=== PATIENT | female | born 1990 | race American Indian/Alaskan Native ===

== ENCOUNTER 2016-09-23 22:07 | Emergency (ER) | payer OTHER ==
[2016-09-23 22:12] VITALS: BP 129/93
[2016-09-24] MEDS ORDERED: ZOFRAN ODT PO ONE (02:04)
[2016-09-24] MEDS ORDERED: NORCO 5/325 PO ONE (02:05)
[2016-09-24] MEDS ORDERED: TORADOL IM ONE (02:05)
--- NOTE | 2016-09-24 02:08 | Emergency Department Report ---
ED Headache HPI - General Chief Complaint: Headache Stated Complaint: MIGRAINE/NAUSEA Time Seen by Provider: 09/24/16 01:49 - History of Present Illness Initial Comments: 25-year-old female presents to emergency room with a chronic headache. Patient states this was diagnosed migraine headaches for years. 7. Topamax but she is out of her Topamax since June of last year. Patient can not afford to see a neurologist for further care. Complains of mild nausea with headache. Timing/Duration: 24 hours, constant Quality: mild, constant Head Injury Location: global Recent Head Trauma: chronic headaches Modifying Factors: improves with: medication Associated Symptoms: nausea/vomiting. denies: sinus infection, stiff neck Allergies/Adverse Reactions: Allergies No Known Allergies Allergy (Unverified 09/23/16 22:32) Home Medications: Ambulatory Orders Diclofenac Sodium 75 mg PO BID #14 tablet. 09/24/16 Ondansetron [Zofran Odt] 4 mg PO Q8HR #12 tab.rapdis 09/24/16 Topiramate [Topamax] 25 mg PO BID #14 tablet 09/24/16 ED Review of Systems ROS: Stated complaint: MIGRAINE/NAUSEA Other details as noted in HPI Comment: All other systems reviewed and negative Constitutional: denies: chills, fever Eyes: denies: eye pain, eye discharge, vision change ENT: denies: ear pain, throat pain Respiratory: denies: cough, shortness of breath, wheezing Cardiovascular: denies: chest pain, palpitations Endocrine: no symptoms reported Gastrointestinal: denies: abdominal pain, nausea, diarrhea Genitourinary: denies: urgency, dysuria, discharge Musculoskeletal: denies: back pain, joint swelling, arthralgia Skin: denies: rash, lesions Neurological: as per HPI, headache. denies: weakness, paresthesias Psychiatric: denies: anxiety, depression Hematological/Lymphatic: denies: easy bleeding, easy bruising ED Past Medical Hx - Past Medical History Previous Medical History?: Yes Hx Headaches / Migraines: Yes - Surgical History Past Surgical History?: No - Social History Smoking Status: Never Smoker Substance Use Type: None - Medications Home Medications: Home Medications Medication Instructions Recorded Confirmed Last Taken Type Diclofenac Sodium 75 mg PO BID #14 tablet. 09/24/16 Unknown Rx Ondansetron [Zofran Odt] 4 mg PO Q8HR #12 tab.rapdis 09/24/16 Unknown Rx Topiramate [Topamax] 25 mg PO BID #14 tablet 09/24/16 Unknown Rx ED Physical Exam - General Limitations: No Limitations General appearance: alert, in no apparent distress - Head Head exam: Present: atraumatic, normocephalic - Eye Eye exam: Present: normal appearance - ENT ENT exam: Present: mucous membranes moist - Neck Neck exam: Present: normal inspection - Respiratory Respiratory exam: Present: normal lung sounds bilaterally. Absent: respiratory distress - Cardiovascular Cardiovascular Exam: Present: regular rate, normal rhythm. Absent: systolic murmur, diastolic murmur, rubs, gallop - GI/Abdominal GI/Abdominal exam: Present: soft, normal bowel sounds - Extremities Exam Extremities exam: Present: normal inspection - Back Exam Back exam: Present: normal inspection - Neurological Exam Neurological exam: Present: alert, altered, oriented X3, CN II-XII intact - Psychiatric Psychiatric exam: Present: normal affect, normal mood - Skin Skin exam: Present: warm, dry, intact, normal color. Absent: rash ED Course Vital Signs 09/23/16 09/23/16 22:10 22:27 Temperature 98.8 F 98.8 F Pulse Rate 84 84 Respiratory 20 20 Rate Blood Pressure 129/93 Blood Pressure 129/93 [Right] O2 Sat by Pulse 97 97 Oximetry - Reevaluation(s) Reevaluation #1: Patient states he feels better after medications in the emergency room. vitals sign stable. 09/24/16 02: Critical care attestation.: If time is entered above; I have spent that time in minutes in the direct care of this critically ill patient, excluding procedure time. ED Disposition Clinical Impression: Chronic headaches Qualifiers: Headache type: unspecified Intractability: not intractable Qualified Code(s): R51 - Headache Disposition: DISCHARGED TO HOME OR SELFCARE Is pt being admited?: No Does the pt Need Aspirin: No Condition: Good Instructions: Migraine Headache (ED) Prescriptions: Diclofenac Sodium 75 mg PO BID #14 tablet. Ondansetron [Zofran Odt] 4 mg PO Q8HR #12 tab.rapdis Topiramate [Topamax] 25 mg PO BID #14 tablet Referrals: [facility] [Provider Group] - 3-5 Days
== END 2016-09-24 02:50 | disposition home or self-care (01) ==
LOC: ED 22:07
DX: G43.909 Migraine, unspecified, not intractable, without status migrainosus (principal)
CPT/HCPCS: 96372; 99282; J1885; Q0162

== ENCOUNTER 2020-11-06 14:15 | Emergency (ER) | payer OTHER ==
--- NOTE | 2020-11-06 14:28 | Emergency Department Report ---
Blank Doc - Documentation Documentation: 30-year-old female that was sent by Dr. Echols for a D&C procedure with heavy v aginal bleeding and nausea vomiting. 1- This initial assessment/diagnostic orders/clinical plan/ treatment(s) is/are subject to change based on pt's health status, clinical progression and re-assessment by fellow clinical providers in the ED. Further treatment and workup at subsequent clinical provers discretion. Patient/guardians urged not to elope from ED as their condition may be serious if not clinically assessed and managed. 2-patient consulted with Dr. Echols and no US needed but labs with IV medications for nausea.
[2020-11-06 15:05] LABS: Basophils # (Auto) 0.1 K/mm3 (0.0-0.1); Basophils % (Auto) 0.6 % (0.0-1.8); Eosinophils % (Auto) 0.2 % (0.0-4.3); Hematocrit 38.8 % (30.3-42.9); Hemoglobin 13.8 gm/dl (10.1-14.3); Lymphocytes # (Auto) 1.2 K/mm3 (1.2-5.4); Lymphocytes % (Auto) 12.9 % (13.4-35.0); Mean Corpuscular HGB Conc 36 % (30-34); Mean Corpuscular Volume 83 fl (79-97); Monocytes # (Auto) 0.9 K/mm3 (0.0-0.8); Monocytes % (Auto) 8.9 % (0.0-7.3); Platelet Count 290 K/mm3 (140-440); Red Blood Count 4.68 M/mm3 (3.65-5.03); Red Cell Distribution Width 12.7 % (13.2-15.2)
[2020-11-06] MEDS ORDERED: propofoL 200 MG/20 ML VIAL IV ONE (15:05)
[2020-11-06] MEDS ORDERED: LIDOCAINE PF 100 MG/5 ML (CARDIAC SYRINGE) IV ONE (15:06)
[2020-11-06] MEDS ORDERED: fentaNYL 100 MCG/2 ML INJ ONE (15:06)
--- NOTE | 2020-11-06 15:13 | History and Physical Report ---
History of Present Illness Date of examination: 11/06/20 History of present illness: This is a 30-year-old -0-0-0 who is at 9 weeks and 3 days by her last menstrual. Patient sent in from the office to have a D&C suction completion. Patient diagnosed with a blighted ovum on ultrasound yesterday. Her recent quant was over 65,000 and patient has not been able to tolerate p.o. in a few days now. Hence the urgency to proceed with suction D&C completion today. Patient is Rh+. Patient with no significant abdominal pain. No vaginal bleeding. Past History Past Medical History: asthma, other (Heart murmur) Past Surgical History: no surgical history Social history: no significant social history - Obstetrical History : 2 Para: 1 Hx # Term Pregnancies: 1 Number of Living Children: 0 Medications and Allergies Allergies Allergy/AdvReac Type Severity Reaction Status Date / Time No Known Allergies Allergy Unverified 09/23/16 22:32 Home Medications Medication Instructions Recorded Confirmed Last Taken Type Diclofenac Sodium 75 mg PO BID #14 tablet. 09/24/16 Unknown Rx Ondansetron [Zofran Odt] 4 mg PO Q8HR #12 tab.rapdis 09/24/16 Unknown Rx Topiramate [Topamax] 25 mg PO BID #14 tablet 09/24/16 Unknown Rx Review of Systems All systems: negative (Except HPI) - Vital Signs Vital signs: Vital Signs Temp Pulse Resp BP Pulse Ox 98.5 F 75 18 131/92 100 11/06/20 14:25 11/06/20 14:25 11/06/20 14:25 11/06/20 14:25 11/06/20 14:25 Temp Pulse Resp BP Pulse Ox 98.5 F 75 18 131/92 100 11/06/20 14:25 11/06/20 14:25 11/06/20 14:25 11/06/20 14:25 11/06/20 14:25 - Physical Exam Abdomen: Positive: soft. Negative: tenderness Genitourinary (Female): Positive: other (Deferred to the operating room) Results Result Diagrams: 11/06/20 14:40 Abnormal lab results 11/06/20 Range/Units 14:40 MCHC 36 H (30-34) % RDW 12.7 L (13.2-15.2) % Lymph % (Auto) 12.9 L (13.4-35.0) % [place] % (Auto) 8.9 H (0.0-7.3) % [place] # (Auto) 0.9 H (0.0-0.8) K/mm3 Seg Neutrophils % 77.4 H (40.0-70.0) % All other labs normal. Assessment and Plan - Patient Problems (1) Blighted ovum Status: Acute Plan to address problem: This along with her significant hyperemesis gravidarum is why we are proceeding with suction D&C completion. Options discussed with the patient and she agrees to proceed with the surgery. Patient fully consented for the surgery. Risks, benefits, and alternatives were all discussed with the patient including risk of bleeding, infection, and potential for injury. Patient understands and accepts these risks. Patient agrees to proceed with surgery. All questions were answered. After the procedure, will give patient some crackers and if she can tolerate that she will be able to go home postop.
[2020-11-06] MEDS ORDERED: LACTATED RINGERS 1,000 ML ONE (15:15)
[2020-11-06 15:16] LABS: Alanine Aminotransferase 7 units/L (7-56); Albumin 4.9 g/dL (3.9-5); BUN/Creatinine Ratio 13; Bilirubin,Direct < 0.2 mg/dL (0-0.2); Blood Urea Nitrogen 8 mg/dL (7-17); Calcium 9.8 mg/dL (8.4-10.2); Hemolysis Index 5
[2020-11-06] MEDS ORDERED: KETOROLAC 30 MG/1 ML INJ ONE (15:30)
[2020-11-06] MEDS ORDERED: dexAMETHasone 20 MG/5 ML VIAL ONE (15:32)
[2020-11-06] MEDS ORDERED: ONDANSETRON 4 MG/2 ML INJ ONE (15:32)
[2020-11-06] MEDS ORDERED: SODIUM CHLORIDE 0.9% IRR 1,000 ML BOTTLE IR ONE (15:45)
--- NOTE | 2020-11-06 15:56 | Anesthesia Consultation ---
Anesthesia Consult and Med Hx Date of service: 11/06/20 - Airway Anesthetic Teeth Evaluation: Chipped ROM Head & Neck: Adequate Mental/Hyoid Distance: Adequate Mallampati Class: Class II Intubation Access Assessment: Good - Pre-Operative Health Status ASA Pre-Surgery Classification: ASA2, Emergency Proposed Anesthetic Plan: General - Pulmonary Hx Asthma: Yes (Stable) - Hematic Hx Anemia: No Hx Sickle Cell Disease: No - Other Systems Hx Obesity: No
--- NOTE | 2020-11-06 15:56 | Anesthesia Day of Surgery ---
Anesthesia Day of Surgery - Day of Surgery Patient Examined: Yes Patient H&P Reviewed: Yes Patient is NPO: Yes
[2020-11-06] MEDS ORDERED: HYDROmorphone 1 MG/1 ML INJ IV PRN ×2 (15:57)
[2020-11-06] MEDS ORDERED: ONDANSETRON 4 MG/2 ML INJ IV PRN (15:57)
--- NOTE | 2020-11-06 16:06 | Post Operative Note ---
Date of procedure: 11/06/20 Pre-op diagnosis: blighted ovum Post-op diagnosis: same Findings: Positive products of conception. 8 to 9-week uterus on bimanual exam. No active bleeding was noted at the start of the case. Procedure: Indication: 30-year-old with a blighted ovum at 9 weeks and 3 days. Patient as result is here for suction D&C completion Findings: Positive products of conception were suctioned. Procedure: Patient taken to the operating room and prepped and draped in usual fashion. A single-tooth tenaculum was placed on the anterior lip of the cervix. An 8 [place] suction catheter was chosen. Cervix was adequately dilated with the dilators for placement of the suction curette. Suction curette placed in the endometrial cavity. Suction curettage was performed until no more products of conception were able to be suctioned out and no more active bleeding was noted. Bimanual exam was done at the end of the case and the uterus palpated firm. Tenaculum was removed from at lip of the cervix and good hemostasis noted throughout. The procedure was concluded at this point. Patient tolerated procedure well. All instrument and lap counts were correct. Patient taken to the recovery in stable condition. Anesthesia: GETA Surgeon: TWYLA PIERSON Estimated blood loss: minimal Pathology: list (Products of conception) Specimen disposition: to lab Condition: stable Disposition: PACU
--- NOTE | 2020-11-06 18:07 | Post Anesthesia Evaluation ---
- Post Anesthesia Evaluation Patient Participated: Yes Airway Patent: Yes Stable Respiratory Function: Yes Nausea/Vomiting: No Temp > 96.8F: Yes Pain Manageable: Yes Adequeate Hydration: Yes Anesthesia Complications: No Block Receding Appropriately: Not Applicable Patient on Ventilator: No
--- NOTE | 2020-11-06 18:38 | Short Stay Summary ---
Short Stay Documentation Date of service: 11/06/20 Narrative H&P: Patient is status post a suction D&C completion for a blighted ovum today. She was 9 weeks and 3 days gestation. Surgery was uncomplicated. Specimen sent to pathology. See H&P and operative report for details. There was concern that patient has not eaten in several days prior to the procedure but was able to tolerate p.o. successfully after the surgery. Patient to follow-up in the office in 2 weeks. - History Social history: no significant social history - Allergies and Medications Current Medications: Allergies No Known Allergies Allergy (Unverified 09/23/16 22:32) Home Medications Medication Instructions Recorded Confirmed Last Taken Type Diclofenac Sodium 75 mg PO BID #14 tablet. 09/24/16 Unknown Rx Ondansetron [Zofran Odt] 4 mg PO Q8HR #12 tab.paul 09/24/16 Unknown Rx Topiramate [Topamax] 25 mg PO BID #14 tablet 09/24/16 Unknown Rx Active Medications Hydromorphone HCl (Hydromorphone 1 Mg/1 Ml Inj) 0.25 mg IV Q10MIN PRN PRN Reason: Pain, Moderate (4-6) Stop: 11/06/20 23:59 Hydromorphone HCl (Hydromorphone 1 Mg/1 Ml Inj) 0.5 mg IV Q10MIN PRN PRN Reason: Pain , Severe (7-10) Stop: 11/06/20 23:59 Ondansetron HCl (Ondansetron 4 Mg/2 Ml Inj) 4 mg IV ONCE PRN PRN Reason: Nausea And Vomiting Stop: 11/06/20 23:59 - Disposition Condition at discharge: Stable Disposition: DC-01 TO HOME OR SELFCARE - Discharge Diagnoses (1) Blighted ovum Status: Acute Short Stay Discharge Plan Additional Instructions: NOTHING PER VAGINA- NO SEX, NO DOUCHE, NO TAMPOONS, NO BATH. MAY SHOWER AND WASH HAIR.USE SANITARY PADS. CALL FOR F/U APPT. TORADOL GIVEN AT 345PM. WATCH FOR VAGINAL BLEEDING. Follow up with: AMANDA THOMPSON MD [Staff Physician] - 7 Days Forms: Discharge Signature Page
--- NOTE | 2020-11-06 18:59 | Emergency Department Report ---
ED Female HPI - General Chief complaint: Medical Clearance Stated complaint: DNC Time Seen by Provider: 11/06/20 14:26 Source: patient Mode of arrival: Ambulatory Limitations: No Limitations - History of Present Illness Initial comments: Chief complaint: "The clinic told me to come." HPI: This is a 30-year-old G2, P1 with past medical history of migraine headache, asthma who was evaluated at obstetrical clinic for incomplete miscarriage. Outpatient ultrasound revealed blighted ovum gestational sac without IUP. hCG 65,000. Patient was referred to the emergency department to be evaluated by Dr. Kinza Echols evaluated the patient [id number]. He recommended urgent surgical intervention for D&C. Patient denies abdominal pain. She denies vaginal bleeding. She has had lack of appetite for the last 4 days. Patient's first resulted in stillbirth. MD Complaint: other (Incomplete miscarriage, lack of appetite) -: days(s) (4 days) Severity: mild Consistency: constant Improves with: none Worsens with: none Are you Now?: Yes Associated Symptoms: other (Lack of appetite) - Related Data Previous Rx's Medication Instructions Recorded Last Taken Type Diclofenac Sodium 75 mg PO BID #14 tablet. 09/24/16 Unknown Rx Ondansetron [Zofran Odt] 4 mg PO Q8HR #12 tab.rapdis 09/24/16 Unknown Rx Topiramate [Topamax] 25 mg PO BID #14 tablet 09/24/16 Unknown Rx Allergies Allergy/AdvReac Type Severity Reaction Status Date / Time No Known Allergies Allergy Unverified 09/23/16 22:32 ED Review of Systems ROS: Stated complaint: DNC Other details as noted in HPI Comment: All other systems reviewed and negative Constitutional: denies: fever, malaise Respiratory: denies: cough, shortness of breath Gastrointestinal: denies: abdominal pain ED Past Medical Hx - Past Medical History Previous Medical History?: Yes Hx Sickle Cell Disease: No Hx Headaches / Migraines: Yes Hx Asthma: Yes (Stable) Additional medical history: heart murmur - Social History Smoking Status: Never Smoker Substance Use Type: None - Medications Home Medications: Home Medications Medication Instructions Recorded Confirmed Last Taken Type Diclofenac Sodium 75 mg PO BID #14 tablet. 09/24/16 Unknown Rx Ondansetron [Zofran Odt] 4 mg PO Q8HR #12 tab.rapdis 09/24/16 Unknown Rx Topiramate [Topamax] 25 mg PO BID #14 tablet 09/24/16 Unknown Rx ED Physical Exam - General Limitations: No Limitations General appearance: alert, in no apparent distress, other (Appears well appears comfortable no acute distress) - Head Head exam: Present: atraumatic, normocephalic - Eye Eye exam: Present: normal appearance - ENT ENT exam: Present: mucous membranes moist - Neck Neck exam: Present: normal inspection, full ROM - Respiratory Respiratory exam: Present: normal lung sounds bilaterally. Absent: respiratory distress, wheezes, rales, rhonchi - Cardiovascular Cardiovascular Exam: Present: regular rate, normal rhythm, normal heart sounds. Absent: systolic murmur, diastolic murmur, rubs, gallop - GI/Abdominal GI/Abdominal exam: Present: soft, normal bowel sounds. Absent: distended, tenderness, guarding, rebound - Extremities Exam Extremities exam: Present: normal inspection - Neurological Exam Neurological exam: Present: alert, oriented X3, normal gait - Psychiatric Psychiatric exam: Present: normal affect, normal mood - Skin Skin exam: Present: warm, dry, intact, normal color. Absent: rash ED Course Vital Signs 11/06/20 11/06/20 11/06/20 14:25 15:58 16:05 Temperature 98.5 F 96.9 F L Pulse Rate 75 80 72 Respiratory 18 12 20 Rate Blood Pressure 131/92 131/70 123/56 O2 Sat by Pulse 100 100 100 Oximetry 11/06/20 11/06/20 11/06/20 16:10 16:15 16:30 Temperature Pulse Rate 71 66 66 Respiratory 20 17 18 Rate Blood Pressure 123/76 116/66 111/63 O2 Sat by Pulse 100 100 98 Oximetry 11/06/20 11/06/20 11/06/20 16:45 16:50 17:50 Temperature 97.8 F 98.0 F 97.9 F Pulse Rate 69 70 72 Respiratory 17 16 16 Rate Blood Pressure 119/71 121/78 120/80 O2 Sat by Pulse 100 98 98 Oximetry ED Medical Decision Making - Lab Data Result diagrams: 11/06/20 14:40 11/06/20 14:40 - Medical Decision Making Incomplete miscarriage: Dr. Echols remote sensing scientist to patient immediately to the ope rating room upon arrival. Lab review reviewed: Beta-hCG 99699, mild hyponatremia, normal CBC, blood type B+ Critical care attestation.: If time is entered above; I have spent that time in minutes in the direct care of this critically ill patient, excluding procedure time. ED Disposition Clinical Impression: Blighted ovum, Incomplete miscarriage Disposition: DC/TX-70 ANOTHER TYPE HLTHCARE Is pt being admited?: No Does the pt Need Aspirin: No Condition: Good Instructions: Dilation and Curettage or Vacuum Curettage, Care After Additional Instructions: NOTHING PER VAGINA- NO SEX, NO DOUCHE, NO TAMPOONS, NO BATH. MAY SHOWER AND WASH HAIR.USE SANITARY PADS. CALL FOR F/U APPT. TORADOL GIVEN AT 345PM. WATCH FOR VAGINAL BLEEDING. Referrals: AMANDA THOMPSON MD [Staff Physician] - 7 Days Forms: Discharge Signature Page
[2020-11-10 08:01] VITALS: BP 131/92
== END 2020-11-06 16:07 | disposition home or self-care (01) ==
LOC: ED 14:15
DX: O03.4 Incomplete spontaneous abortion without complication (principal); O02.0 Blighted ovum and nonhydatidiform mole; G43.909 Migraine, unspecified, not intractable, without status migrainosus; J45.909 Unspecified asthma, uncomplicated; Z3A.00 Weeks of gestation of pregnancy not specified; Z79.899 Other long term (current) drug therapy
CPT/HCPCS: 36415; 59812; 80048; 80076; 84702; 85025; 86850; 86900; 86901; 88305; 99284; J1100; J1885; J2001; J2405; J2704; J3010; J7120